=== PATIENT | female | born 1960 | race Caucasian/White ===

== ENCOUNTER 2017-05-11 10:57 | Emergency (ER) | payer BC ==
[2017-05-11 11:19] VITALS: BP 164/85
[2017-05-11] MEDS ORDERED: Cephalexin CAP* 500 MG PO ONE (11:55)
--- NOTE | 2017-05-11 14:35 | UC ---
Lower Extremity/Ankle HPI - HPI Summary HPI Summary: ONSET OF RIGHT 4TH TOE PAIN LAST NIGHT. HAS NOTICED THICKENED NAILS OVER THE PAST YEAR AND TRIES TO KEEP THEM TRIM. CUT THIS NAIL TOO SHORT LAST NIGHT AND NOW HAS REDNESS, SWELLING AND PAIN. NO TRAUMA. - History of Current Complaint Chief Complaint: UCLowerExtremity Stated Complaint: INGROWN TOENAIL Time Seen by Provider: 05/11/17 11:23 Hx Obtained From: Patient Hx Last Menstrual Period: 12/05/13 has tubal Onset/Duration: Gradual Onset, Lasting Hours, Still Present Severity Initially: Moderate Severity Currently: Moderate Pain Intensity: 5 Pain Scale Used: 0-10 Numeric Aggravating Factor(s): Standing, Ambulation Able to Bear Weight: Yes - Allergies/Home Medications Allergies/Adverse Reactions: Allergies Allergy/AdvReac Type Severity Reaction Status Date / Time Codeine Allergy Severe tongue Verified 05/11/17 11:19 swelling/GI PMH/Surg Hx/FS Hx/Imm Hx Previously Healthy: Yes - Surgical History Surgical History: Yes Surgery Procedure, Year, and Place: Cholecystectomy. , 1988 1991. Tonsillectomy, 1965 - Family History Known Family History: Negative: Respiratory Disease - Social History Alcohol Use: None Substance Use Type: None Smoking Status (MU): Never Smoked Tobacco Household Exposure Type: Cigarettes - Immunization History Most Recent Influenza Vaccination: NOT UTD Review of Systems Constitutional: Negative Skin: Other - REDNESS, SWELLING Respiratory: Negative Cardiovascular: Negative Gastrointestinal: Negative Musculoskeletal: Arthralgia All Other Systems Reviewed And Are Negative: Yes Physical Exam Triage Information Reviewed: Yes Appearance: Well-Appearing, No Pain Distress, Well-Nourished Vital Signs: Initial Vital Signs Temp 98.2 F 05/11/17 11:12 Pulse 81 05/11/17 11:12 Resp 16 05/11/17 11:12 BP 164/85 05/11/17 11:12 Pulse Ox 98 05/11/17 11:12 Vital Signs Reviewed: Yes Eyes: Positive: Conjunctiva Clear ENT: Positive: Hearing grossly normal Neck: Positive: Supple Respiratory: Positive: No respiratory distress, No accessory muscle use Cardiovascular: Positive: Pulses Normal Abdomen Description: Positive: Soft Musculoskeletal: Positive: ROM Intact, Edema @ - RIGHT 4TH TOE, Other: - TTP RIGHT 4TH TOE Neurological: Positive: Alert Psychological: Positive: Age Appropriate Behavior Skin: Positive: Other - RIGHT 4TH TOE REDNESS AND VISIBLE PUS Lower Extremity Course/Dx - Course Course Of Treatment: 18 GAUGE NEEDLE USED TO PUNCTURE ABSCESS WITH SMALL AMOUNT PUS EXPRESSED. SPECIMEN SENT FOR CULTURE. KEFLEX. HOT SOAKS. FOLLOW-UP IF NEEDED. - Differential Dx/Diagnosis Provider Diagnoses: 1. PARONYCHIA. 2. ONYCHOMYCOSIS Discharge - Discharge Plan Condition: Stable Disposition: HOME Prescriptions: Cephalexin CAP* [Keflex 500 CAP*] 1,000 mg PO BID #26 cap Patient Education Materials: Paronychia (ED) Referrals: Brett Vernon MD [Primary Care Provider] - If Needed Additional Instructions: ONYCHOMYCOSIS What is a fungal nail infection? A fungal nail infection is an infection of the nail that makes it get thick or turn white, yellow, or brown. It is caused by a type of germ called a "fungus." Fungal infections happen in the toenails more often than the fingernails. They usually start on the big toe, and can affect 1 or more nails. People who have a toenail infection might also have a condition known as "athlete's foot" (a fungal infection of the skin on the foot). That's because certain types of fungi (plural of fungus) can cause both of these problems. Fungi like to grow in warm and wet places. People who swim or whose feet sweat a lot might have a higher chance of getting a fungal nail infection. What are the symptoms of a fungal nail infection? A fungal infection can cause a nail to: - Turn white, yellow, or brown (picture 1) - Get thick, change shape, or lift up - Break off easily - Hurt Fungal nail infections don't usually lead to serious long-term problems. But in some people they can. In people who have diabetes or whose bodies have trouble fighting infections, the nail infection can make them more likely to get other infections. Is there a test for a fungal nail infection? Yes. Usually, your doctor or nurse can tell if you have a fungal nail infection by talking with you and doing an exam. But to make sure, he or she might take a small sample of the nail. He or she might look at it under a microscope, or send it to a lab for another doctor to look at. Your doctor might also send the sample to a lab for a test called a "culture" that can show which germs are causing the infection. Can I treat my fungal nail infection on my own? You can buy [id number] creams or products, but they usually don't work. How are fungal nail infections treated? Treatment depends, in part, on how severe the infection is, and how much it bothers you. If your infection is mild or doesn't bother you very much, you might choose not to treat it. An untreated nail infection probably won't go away, but it probably won't cause any long- term problems either. When people need or choose to have treatment, it usually involves "antifungal" medicines that you get with a prescription from your doctor. These medicines are taken by mouth or put on the nail. Treatment with pills usually lasts a few months. Some people who take these medicines need to have blood tests. That's because these medicines can affect the liver. If you don't want to or can't take antifungal pills, your doctor will talk with you about other treatment options. These might include using an antifungal medicine on the nail or having surgery to remove your nail. Before starting any of these treatments, you should know that: - It can take many months for your nail to look normal again. - There is a chance that the treatment won't work. The infection might not get better, or it might come back. If either of these things happen, your doctor can try another treatment or send you to a specialist. Can fungal nail infections be prevented? Sometimes. To reduce your chance of getting one, you can: - Keep your feet clean and dry. - Avoid sharing nail tools, such as clippers and scissors. PODIATRY IN [facility] Dr[address] Juarez Perkins [address] Dr. Bhavesh Boyd. Please call his office at [phone] to make an appointment to be seen Dr. Jonathan Garcia. Please call his office at [phone] to make an appointment to be seen
--- NOTE | 2017-05-12 17:47 | UC ---
Progress - Progress Note Progress Note: Patient's wound culture grew staph lugdenensis. Antibiotics sensitivity waiting. Patient on keflex.
--- NOTE | 2017-05-13 07:49 | UC ---
Progress - Progress Note Progress Note: Patient's wound culture grew staph lugdenensis. Antibiotics sensitivity waiting. Patient on keflex. 05/13/17: preliminary results again as reported above. On Keflex. Quincy Michelle M.D.
== END 2017-05-11 12:06 | disposition home or self-care (01) ==
LOC: UCEAST 10:57
DX: L03.031 Cellulitis of right toe (principal); B95.7 Other staphylococcus as the cause of diseases classified elsewhere; Z88.5 Allergy status to narcotic agent
CPT/HCPCS: 10060; 87070; 87077; 87186; 87205; 87640; 87641; 99212; A9270-GY; G0463

== ENCOUNTER 2018-05-29 11:48 | Emergency (ER) | payer BC ==
[2018-05-29 13:06] VITALS: BP 153/82
--- NOTE | 2018-05-29 13:25 | UC ---
Respiratory Complaint HPI - HPI Summary HPI Summary: Cough and congestion and headache for about two days. No prior lung disease, asthma, copd. Non smoker. Sister was sick with resp infection. - History of Current Complaint Chief Complaint: UCRespiratory Stated Complaint: SINUSES, COUGH, CONGESTION Time Seen by Provider: 05/29/18 12:58 Hx Obtained From: Patient Hx Last Menstrual Period: 12/05/13 has tubal Onset/Duration: Gradual Onset, Lasting Days Timing: Constant Severity Initially: Moderate Severity Currently: Moderate Pain Intensity: 0 Character: Cough: Nonproductive Aggravating Factors: Deep Breaths, Recumbent Position Alleviating Factors: Nothing Associated Signs And Symptoms: Positive: URI, Nasal Congestion, Hoarseness. Negative: Dyspnea, Fever, Chills, Calf Pain, Calf Swelling - Allergies/Home Medications Allergies/Adverse Reactions: Allergies Allergy/AdvReac Type Severity Reaction Status Date / Time codeine Allergy See Comment Verified 05/29/18 13:01 PMH/Surg Hx/FS Hx/Imm Hx Previously Healthy: No - obesity. - Surgical History Surgical History: Yes Surgery Procedure, Year, and Place: Cholecystectomy. , 1988 1991. Tonsillectomy, 1965 - Family History Known Family History: Negative: Respiratory Disease - Social History Alcohol Use: None Substance Use Type: None Smoking Status (MU): Never Smoked Tobacco Household Exposure Type: Cigarettes - Immunization History Most Recent Influenza Vaccination: NOT UTD Review of Systems All Other Systems Reviewed And Are Negative: Yes ENT: Positive: Sinus Congestion Respiratory: Positive: Cough Physical Exam Triage Information Reviewed: Yes Appearance: Well-Appearing, No Pain Distress, Obese Vital Signs: Initial Vital Signs Temp 97.9 F 05/29/18 13:01 Pulse 73 05/29/18 13:01 Resp 20 05/29/18 13:01 BP 153/82 05/29/18 13:01 Pulse Ox 95 05/29/18 13:01 Vital Signs Reviewed: Yes Eyes: Positive: Conjunctiva Clear. Negative: Conjunctiva Inflamed ENT: Positive: Normal ENT inspection, Pharynx normal, Nasal congestion, TMs normal, Uvula midline. Negative: Pharyngeal erythema, Nasal drainage, TM bulging, TM dull, TM red, Tonsillar swelling, Tonsillar exudate, Trismus, Muffled voice, Hoarse voice Neck: Positive: Supple, Nontender, No Lymphadenopathy Respiratory: Positive: No respiratory distress, No accessory muscle use, Wheezing, Other: - Diminished "tight" breath sounds carline without rales or rhonchi.. Negative: Respiratory distress, Decreased breath sounds, Accessory muscle use, Crackles, Rhonchi, Stridor Cardiovascular: Positive: No Murmur, Pulses Normal, Brisk Capillary Refill. Negative: Tachycardia, Bradycardia Abdomen Description: Positive: No Organomegaly, Soft. Negative: Distended, Guarding Musculoskeletal: Positive: Strength Intact, ROM Intact, No Edema Neurological: Positive: Alert, Muscle Tone Normal. Negative: Fatigued Psychological: Positive: Age Appropriate Behavior Skin: Negative: Rashes UC Diagnostic Evaluation - Laboratory O2 Sat by Pulse Oximetry: 95 Respiratory Course/Dx - Course Course Of Treatment: No clinical signs of pneumonia or bacterial infection without fever, tachycardia or productive cough. - Differential Dx/Diagnosis Provider Diagnosis: URI with cough and congestion Discharge - Sign-Out/Discharge Documenting (check all that apply): Patient Departure All imaging exams completed and their final reports reviewed: No Studies - Discharge Plan Condition: Good Disposition: HOME Prescriptions: Albuterol HFA INHALER* [Ventolin HFA Inhaler*] 1 puff INH Q4H PRN #1 mdi PRN Reason: Cough Benzonatate CAP* [Tessalon 100 MG CAP*] 100 mg PO TID PRN #30 cap PRN Reason: Cough Inhaler, Assist Devices [Space Chamber Plus] 1 each MC Q4HR #1 spacer predniSONE [Prednisone 20 MG TAB] 40 mg PO DAILY #6 tablet Patient Education Materials: Upper Respiratory Infection (ED) Referrals: Brett Vernon MD [Primary Care Provider] - If Needed - Billing Disposition and Condition Condition: GOOD Disposition: Home
== END 2018-05-29 13:32 | disposition home or self-care (01) ==
LOC: UCCORT 11:48
DX: J06.9 Acute upper respiratory infection, unspecified (principal); R05 Cough; R09.81 Nasal congestion; Z88.5 Allergy status to narcotic agent
CPT/HCPCS: 99212; G0463